=== PATIENT | male | born 1985 | race African-American/Black ===

== ENCOUNTER 2018-04-12 18:10 | Emergency (ER) | payer OTHER, MEDICAID ==
[~2018-04-12] VITALS: Ht 172.7 cm; Wt 61.2 kg
[2018-04-12 18:35] VITALS: Ht 172.7 cm; Wt 61.2 kg
[2018-04-12 20:14] LABS: BASOPHIL % 0.2 % (0-2); PLATELET COUNT 141 x10^3mcL (130-400)
[2018-04-12 20:16] LABS: CALCIUM 9.3 mg/dL (8.5-10.1); CARBON DIOXIDE 29.1 mmol/L (21-32); CHLORIDE SERUM 105 mmol/L (98-107); CREATININE SERUM 0.9 mg/dL (0.7-1.3); GFR1 > 60 mL/min; GLUCOSE SERUM 87 mg/dL (74-106); SODIUM SERUM 142 mmol/L (136-145)
[2018-04-12 20:21] LABS: AMPHETAMINE QUAL UR NONE DETECTED (See below)
[2018-04-12 20:25] LABS: RED CELL DISTRIBUTION WIDTH 17.5 % (11.5-14.5)
[2018-04-12 20:29] LABS: ALBUMIN 3.5 g/dL (3.4-5.0); ALKALINE PHOSPHATASE 69 U/L (46-116); ALT/SGPT 16 U/L (16-63); AST/SGOT 25 U/L (15-37); TOTAL PROTEIN, SERUM 8.2 g/dL (6.4-8.2)
[2018-04-12 22:38] VITALS: BP 129/79
== END 2018-04-12 22:38 | disposition home or self-care (01) ==
LOC: ED 18:10
PROVIDERS: Emergency Medicine
PROC: BW40ZZZ Ultrasonography of Abdomen (ICD-10-PCS; principal; 2018-04-12)
DX: R11.10 Vomiting, unspecified (principal); E72.20 Disorder of urea cycle metabolism, unspecified; K76.0 Fatty (change of) liver, not elsewhere classified; F20.9 Schizophrenia, unspecified; F31.9 Bipolar disorder, unspecified; F90.9 Attention-deficit hyperactivity disorder, unspecified type; F79 Unspecified intellectual disabilities
CPT/HCPCS: 36415; G0480; Q0092; Q0162

== ENCOUNTER 2018-05-14 18:13 | Emergency (ER) | payer OTHER, MEDICAID ==
[~2018-05-14] VITALS: Ht 180.3 cm; Wt 59.4 kg
[2018-05-14 18:17] VITALS: Ht 180.3 cm; Wt 59.4 kg
[2018-05-14 18:51] LABS: BASOPHIL % 0.9 % (0-2)
[2018-05-14 18:54] LABS: PLATELET COUNT 115 x10^3mcL (130-400); RED CELL DISTRIBUTION WIDTH 16.6 % (11.5-14.5)
[2018-05-14 18:55] LABS: CALCIUM 8.8 mg/dL (8.5-10.1); CARBON DIOXIDE 29.7 mmol/L (21-32); CHLORIDE SERUM 105 mmol/L (98-107); CREATININE SERUM 0.9 mg/dL (0.7-1.3); GFR1 > 60 mL/min; GLUCOSE SERUM 116 mg/dL (74-106); SODIUM SERUM 143 mmol/L (136-145)
[2018-05-14 18:59] LABS: ALBUMIN 3.9 g/dL (3.4-5.0); ALKALINE PHOSPHATASE 76 U/L (46-116); ALT/SGPT 18 U/L (16-63); AST/SGOT 22 U/L (15-37); BILIRUBIN TOTAL 0.2 mg/dL (0.20-1.00)
[2018-05-14 19:00] LABS: TOTAL PROTEIN, SERUM 8.7 g/dL (6.4-8.2)
[2018-05-14 19:27] LABS: microscopic required? YES; urine erythrocyte NEGATIVE (NEGATIVE)
[2018-05-14 20:13] LABS: AMPHETAMINE QUAL UR NONE DETECTED (See below)
[2018-05-15 07:12] VITALS: BP 136/86
== END 2018-05-15 07:12 | disposition home or self-care (01) ==
LOC: ED 18:13
PROVIDERS: Emergency Medicine
DX: F90.9 Attention-deficit hyperactivity disorder, unspecified type (principal); H50.10 Unspecified exotropia; F79 Unspecified intellectual disabilities; F20.9 Schizophrenia, unspecified; F31.9 Bipolar disorder, unspecified
CPT/HCPCS: 36415; G0480

== ENCOUNTER 2018-11-05 20:33 | Emergency (ER) | payer OTHER, BC ==
[~2018-11-05] VITALS: Ht 172.7 cm; Wt 59.9 kg
[2018-11-05 20:47] VITALS: BP 132/91; Ht 172.7 cm; Wt 59.9 kg
== END 2018-11-05 22:21 | disposition left against medical advice (07) ==
LOC: ED 20:33
DX: Z53.21 Procedure and treatment not carried out due to patient leaving prior to being seen by health care provider (principal)